=== PATIENT | female | born 1995 | race Caucasian/White ===

== ENCOUNTER 2019-12-07 12:54 | Emergency (ER) | payer OTHER ==
--- NOTE | 2019-12-07 13:32 | ED ---
Shortness of Breath - HPI Summary HPI Summary: 24-year-old female who is on oral contraception with family medical history of antiphospholipid syndrome presents to the emergency department today with a chief complaint of shortness of breath with 3 out of 10 sternal chest pain 1 month and associated nonproductive cough. Patient states she has shortness of breath at rest which is made worse with exertion. Patient denies past medical history of blood clots. Patient was recently tested negative for COVID. She denies recent surgery, immobilization, long distance travel. Patient denies recent stressors other than the pandemic. Patient is otherwise well and denies fever, headache, changes in vision, abdominal pain, pain with urination, nausea , vomiting, diarrhea. Patient was sent here from [facility] to rule out blood clot. - History of Current Complaint Chief Complaint: EDShortnessOfBreath Time Seen by Provider: 12/07/19 13:14 Hx Obtained From: Patient Onset/Duration: Gradual Onset, Lasting Weeks Dyspnea At: Rest Aggravating Factors: Movement Associated Signs & Symptoms: Cough (Nonproductive) - Risk Factors Pulmonary Embolism: Oral Contraceptives - Allergy/Home Medications Allergies/Adverse Reactions: Allergies Allergy/AdvReac Type Severity Reaction Status Date / Time No Known Allergies Allergy Verified 12/07/19 13:05 Home Medications: Home Medications Multivitamins/Minerals TAB* [Theragran/minerals TAB*] 1 tab PO DAILY 12/07/19 [ History Confirmed 12/07/19] Norethindrone [Norlyda] 0.35 mg PO DAILY 12/07/19 [History Confirmed 12/07/19] PMH/Surg Hx/FS Hx/Imm Hx Infectious Disease History: No Infectious Disease History: Denies: Traveled Outside the [place] in Last 30 Days - Social History Alcohol Use: None Substance Use Type: Reports: None Smoking Status (MU): Never Smoked Tobacco Review of Systems Constitutional: Negative Eyes: Negative ENT: Negative Positive: Chest Pain Positive: Shortness Of Breath, Cough Gastrointestinal: Negative Genitourinary: Negative Musculoskeletal: Negative Skin: Negative Neurological/Mental Status: Negative Positive: Anxious. Negative: Depressed All Other Systems Reviewed And Are Negative: Yes Physical Exam - Summary Physical Exam Summary: Patient makes poor eye contact on exam and appears quite anxious. No evidence of labored breathing, wheezing, stridor, accessory muscle use. Patient is able to speak in full non-broken sentences. Triage Information Reviewed: Yes Vital Signs On Initial Exam: Initial Vitals Temp Pulse Resp BP Pulse Ox 99.2 F 130 18 135/102 99 12/07/19 12:56 12/07/19 12:56 12/07/19 12:56 12/07/19 12:56 12/07/19 12:56 Vital Signs Reviewed: Yes Appearance: Positive: Well-Appearing, No Pain Distress, Well-Nourished Skin: Positive: Warm, Skin Color Reflects Adequate Perfusion Eyes: Positive: EOMI, AMA ENT: Positive: Hearing grossly normal Respiratory/Lung Sounds: Positive: Clear to Auscultation, Breath Sounds Present. Negative: Wheezes, Unable to speak in full sentences, Fatigue Cardiovascular: Positive: RRR, S1, S2 Musculoskeletal: Positive: Strength/ROM Intact Neurological: Positive: Sensory/Motor Intact, Alert, Oriented to Person Place, Time, Normal Gait, Facial Symmetry, Speech Normal. Negative: Slurred Speech Psychiatric: Positive: Anxious AVPU Assessment: Alert Procedures - Sedation Patient Received Moderate/Deep Sedation with Procedure: No Diagnostics - Vital Signs Vital Signs Temp Pulse Resp BP Pulse Ox 12/07/19 13:05 110 100 12/07/19 13:04 113 147/100 99 12/07/19 12:56 99.2 F 130 18 135/102 99 - Laboratory Result Diagrams: 12/07/19 13:30 12/07/19 13:30 Lab Statement: Any lab studies that have been ordered have been reviewed, and results considered in the medical decision making process. Course/Dx - Course Course Of Treatment: Patient was evaluated in the emergency department today for shortness of breath. Vitals noted. Patient was tachycardic but afebrile. EKG was done promptly which shows sinus tachycardia at a rate of 121 bpm. No evidence of STEMI. Normal ND and QT intervals. Normal axis. No T wave inversions noted. No prior EKGs available for comparison. PERC positive, wells score for PE 4.5, moderate risk. Laboratory studies returned showing no leukocytosis or anemia. INR is within normal limits. There are no significant electrolyte derangements. T bili is mildly elevated at 1.8. Other LFTs are within normal limits. No renal dysfunction. CRP less than 1, troponin 0.00, beta hCG negative for , d-dimer 482 significant elevated. Chest x-ray shows no evidence of pneumonia or pneumothorax however there was noted hyperinflation consistent with COPD or reactive airway disease. CTA of the chest was done to rule out pulmonary embolism due to elevated d-dimer which shows no evidence of cardiopulmonary disease including pulmonary emboli. Patient was given 1 mg of Ativan in the emergency department for suspected underlying anxiety. Patient's shortness of breath could be due to possible underlying reactive airway disease. Patient appears to be in no acute distress at this time. Patient discharged outpatient follow-up. - Diagnoses Differential Diagnosis/HQI/PQRI: Positive: Asthma, Pneumonia, Pneumothorax, Pulmonary Embolism, Other - anxiety, reactive airway disease Provider Diagnoses: Dyspnea - Critical Care Time Critical Care Statement: Critical care time is provided exclusive of any time spent performing procedures. Discharge ED - Sign-Out/Discharge Documenting (check all that apply): Patient Departure - Discharge Plan Condition: Stable Disposition: HOME Patient Education Materials: Dyspnea (ED) Referrals: Paras Mclean MD [Primary Care Provider] - 3 Days Additional Instructions: There is no evidence of blood clots or pulmonary embolism noted. Your shortness of breath could be due to underlying anxiety. It appears there is no significant pathology requiring intervention at this time. Please follow-up with your primary care physician in 3-5 days for further evaluation and management of your symptoms and workup into the possible origin being underlying anxiety. Please return to this emergency department immediately should you develop any new or worsening symptoms. On x-ray today was noted that there was hyperinflation which could suggest possible reactive airway disease. Please follow-up with your primary care provider for further evaluation and management of this finding as is could explain your symptoms. - Billing Disposition and Condition Condition: STABLE Disposition: Home
[2019-12-07 13:42] LABS: ABS Eosinophils 0.1 10^3/ul (0-0.6); ABS Lymphocytes 1.3 10^3/ul (1.0-4.8); ABS Monocytes 0.6 10^3/ul (0-0.8); ABS Neutrophils 5.7 10^3/ul (1.5-7.7); Eosinophil % 0.8 %; Hematocrit 43 % (35-47); Hemoglobin 15.2 g/dL (12.0-16.0); Mean Corpuscular HGB Conc 35 g/dL (31-36); Mean Corpuscular Hemoglobin 32 pg (27-31); Mean Corpuscular Volume 90 fL (80-97); Mean Platelet Volume 8.1 fL (7.4-10.4); Platelet Count 302 10^3/uL (150-450); Red Cell Distribution Width 13 % (10-15); White Blood Count 7.8 10^3/uL (3.5-10.8)
[2019-12-07 13:49] LABS: INR 1.07 (0.82-1.09)
[2019-12-07 13:59] LABS: ALT 14 U/L (7-52); AST 19 U/L (13-39); Albumin 4.8 g/dL (3.2-5.2); Albumin/Globulin Ratio 1.6 (1-3); Alkaline Phosphatase 54 U/L (34-104); Anion Gap 11 mmol/L (2-11); BUN/Creatinine Ratio 11.8 (8-20); Blood Urea Nitrogen 11 mg/dL (6-24); C Reactive Protein < 1.00 mg/L (<8.01); CO2 Carbon Dioxide 21 mmol/L (22-32); Calcium 9.8 mg/dL (8.6-10.3); Chloride 107 mmol/L (101-111); EGFR African American 89.6 (>60); EGFR Non-African American 74.1 (>60); Glucose 95 mg/dL (70-100); Potassium 3.7 mmol/L (3.5-5.0); Sodium 139 mmol/L (135-145); Total Protein 7.8 g/dL (6.4-8.9)
[2019-12-07 14:06] LABS: HCG Pregnancy < 0.60 mIU/mL
[2019-12-07] MEDS ORDERED: Iohexol 350* (CONTRAST) 500 ML MDV IV ONE (14:31)
[2019-12-07] MEDS ORDERED: LORazepam TAB(*) 1 MG PO ONE (15:39)
[2019-12-07 16:09] VITALS: BP 126/72
== END 2019-12-07 16:09 | disposition home or self-care (01) ==
LOC: ED 12:54
DX: R06.00 Dyspnea, unspecified (principal); R07.89 Other chest pain; R05 Cough; F41.9 Anxiety disorder, unspecified; R06.02 Shortness of breath; Z79.899 Other long term (current) drug therapy
CPT/HCPCS: 36415; 71046; 71275; 80053; 84484; 84702; 85025; 85379; 85610; 86140; 93005; 99282; A9270-GY; Q9967